=== PATIENT | male | born 1990 | race Caucasian/White ===

== ENCOUNTER 2017-03-17 11:02 | Outpatient (CLI) | payer OTHER, SELFPAY ==
[~2017-03-17] VITALS: Ht 160 cm; Wt 87.3 kg
[2017-03-17 10:45] VITALS: BP 157/88
[2017-03-17] MEDS ORDERED: GILE1CAP PO (11:32)
[2017-03-17] MEDS ORDERED: PROZ20CA11 PO (11:32)
[2017-03-17] MEDS ORDERED: TRAZ50TA11 PO (11:32)
[2017-03-17] MEDS ORDERED: MAGN500C PO (11:32)
[2017-03-17] MEDS ORDERED: DRIS50002 PO (11:32)
[2017-03-17] MEDS ORDERED: VITATAB11 PO (11:32)
[2017-03-17] MEDS ORDERED: methylPREDNISolone 1,000 MG, VIAL MATE ADAPTER 1 EACH in D5W 250 ML IV ONE (12:00)
== END 2017-03-17 14:25 | disposition home or self-care (01) ==
LOC: M OPCLIPED 11:02 → M PED 11:10 → M ED INP 13:41 → M PED 13:53 → M OPCLIPED 14:25
PROVIDERS: ATTEND Psychiatry & Neurology Neurology
DX: G35 Multiple sclerosis (principal); Z79.899 Other long term (current) drug therapy
CPT/HCPCS: 96374; J2930

== ENCOUNTER 2017-03-18 08:07 | Outpatient (CLI) | payer OTHER ==
[~2017-03-18] VITALS: Ht 160 cm; Wt 87.3 kg
[~2017-03-18 08:07] MED LIST: DRIS50002 PO; GILE1CAP PO; MAGN500C PO; PROZ20CA11 PO; TRAZ50TA11 PO; VITATAB11 PO
[2017-03-18] MEDS ORDERED: methylPREDNISolone 1,000 MG, VIAL MATE ADAPTER 1 EACH in D5W 250 ML IV ONE (09:00)
== END 2017-03-18 09:55 | disposition home or self-care (01) ==
LOC: M INFU 08:07
PROVIDERS: ATTEND Psychiatry & Neurology Neurology
DX: G35 Multiple sclerosis (principal); Z72.0 Tobacco use; Z79.899 Other long term (current) drug therapy
CPT/HCPCS: 96365; J2930

== ENCOUNTER 2017-03-19 09:32 | Outpatient (CLI) | payer OTHER ==
[~2017-03-19] VITALS: Ht 162.6 cm; Wt 88.0 kg
[2017-03-19 09:55] VITALS: BP 138/83
[2017-03-19] MEDS ORDERED: methylPREDNISolone 1,000 MG, VIAL MATE ADAPTER 1 EACH in D5W 250 ML IV ONE (10:15)
[2017-03-19 12:15] VITALS: BP 122/91
== END 2017-03-19 12:15 | disposition home or self-care (01) ==
LOC: M OPCLI4PR 09:32 → M PED 09:36 → M OPCLI4PR 12:15
PROVIDERS: ATTEND Psychiatry & Neurology Neurology
DX: G35 Multiple sclerosis (principal); Z79.899 Other long term (current) drug therapy
CPT/HCPCS: 96374; J2930

== ENCOUNTER 2017-07-20 14:37 | Emergency (ER) | payer OTHER ==
[2017-07-20] MEDS: methylPREDNISolone 1,000 MG, VIAL MATE ADAPTER 1 EACH in D5W 250 ML IV (16:02)
[2017-07-20] MEDS: NS 1,000 ML IV (16:02)
== END 2017-07-20 17:44 | disposition home or self-care (01) ==
LOC: M ED 14:37
DX: G35 Multiple sclerosis (principal); F17.200 Nicotine dependence, unspecified, uncomplicated; Z82.49 Family history of ischemic heart disease and other diseases of the circulatory system; Z79.899 Other long term (current) drug therapy
CPT/HCPCS: J2930

== ENCOUNTER 2017-07-21 06:53 | Outpatient (CLI) | payer OTHER ==
[2017-07-21] MEDS: methylPREDNISolone 1,000 MG, VIAL MATE ADAPTER 1 EACH in D5W 250 ML IV (07:18)
== END 2017-07-21 08:30 | disposition home or self-care (01) ==
LOC: M INFU 06:53
DX: G35 Multiple sclerosis (principal); F17.210 Nicotine dependence, cigarettes, uncomplicated; Z79.899 Other long term (current) drug therapy
CPT/HCPCS: 96365

== ENCOUNTER 2017-07-22 09:13 | Outpatient (CLI) | payer OTHER ==
[2017-07-22] MEDS: methylPREDNISolone 1,000 MG, VIAL MATE ADAPTER 1 EACH in D5W 250 ML IV (09:39)
== END 2017-07-22 10:55 | disposition home or self-care (01) ==
LOC: M INFU 09:13
DX: G35 Multiple sclerosis (principal); F17.210 Nicotine dependence, cigarettes, uncomplicated; Z79.899 Other long term (current) drug therapy
CPT/HCPCS: 96365